=== PATIENT | female | born 1980 | race Caucasian/White ===

== ENCOUNTER 2023-01-30 12:31 | Outpatient (CLI) | payer OTHER | END 2023-01-30 13:14 | disposition home or self-care (01) | LOC: NST 12:31 | PROVIDERS: ATTEND Obstetrics & Gynecology | DX: Z34.83 Encounter for supervision of other normal pregnancy, third trimester (principal) ==

== ENCOUNTER 2023-02-12 13:55 | Outpatient (CLI) | payer OTHER | END 2023-02-12 14:57 | disposition home or self-care (01) | LOC: NST 13:55 | PROVIDERS: ATTEND Obstetrics & Gynecology Gynecology | DX: Z34.83 Encounter for supervision of other normal pregnancy, third trimester (principal) ==

== ENCOUNTER 2023-02-19 10:25 | Outpatient (CLI) | payer OTHER | END 2023-02-19 12:26 | disposition home or self-care (01) | LOC: NST 10:25 | PROVIDERS: ATTEND Obstetrics & Gynecology Gynecology | DX: Z34.83 Encounter for supervision of other normal pregnancy, third trimester (principal) ==

== ENCOUNTER 2023-03-05 01:01 | Inpatient (IN) | payer OTHER ==
[~2023-03-05] VITALS: Ht 152.4 cm; Wt 78.5 kg
[2023-03-05] MEDS ORDERED: LABETALOL HCL100 MG PO (10:32)
[2023-03-05] MEDS ORDERED: PRENATABS RX T1 EACH PO (10:33)
[2023-03-05] MEDS ORDERED: CHILDREN'S ASPI81 MG PO (10:33)
== END 2023-03-06 09:29 | disposition home or self-care (01) | DRG 833 ==
LOC: LDR 01:01
PROVIDERS: ADMIT Obstetrics & Gynecology Gynecology; ATTEND Obstetrics & Gynecology Gynecology
PROC: 4A1HXCZ Monitoring of Products of Conception, Cardiac Rate, External Approach (ICD-10-PCS; principal; 2023-03-05)
DX: O60.03 Preterm labor without delivery, third trimester (principal); Z3A.36 36 weeks gestation of pregnancy; Z20.822 Contact with and (suspected) exposure to COVID-19

== ENCOUNTER 2023-03-10 12:21 | Inpatient (IN) | payer OTHER ==
[~2023-03-10] VITALS: Ht 160 cm; Wt 2.7 kg
[~2023-03-10 12:21] MED LIST: CHILDREN'S ASPI81 MG PO; LABETALOL HCL100 MG PO; PRENATABS RX T1 EACH PO
== END 2023-03-14 13:44 | disposition home or self-care (01) | DRG 786 ==
LOC: LDR 12:21 → OB/GYN 03-11 13:46
PROVIDERS: ADMIT Obstetrics & Gynecology Gynecology; ATTEND Obstetrics & Gynecology Gynecology
PROC: 4A1HXCZ Monitoring of Products of Conception, Cardiac Rate, External Approach (ICD-10-PCS; 2023-03-10)
PROC: 10D00Z1 Extraction of Products of Conception, Low, Open Approach (ICD-10-PCS; principal; 2023-03-11 11:15)
DX: O10.92 Unspecified pre-existing hypertension complicating childbirth (principal); O60.14X0 Preterm labor third trimester with preterm delivery third trimester, not applicable or unspecified; Z3A.36 36 weeks gestation of pregnancy; Z37.0 Single live birth; Z20.822 Contact with and (suspected) exposure to COVID-19

== ENCOUNTER → 2023-05-03 06:00 | Outpatient (CLI) | payer OTHER ==
[~2023-05-03] VITALS: Ht 160 cm; Wt 67.6 kg
[2023-05-03 13:50] LABS: HEMATOCRIT 40.5 % (36.0-45.00); HEMOGLOBIN 13.3 g/dL (12.0-15.00); MEAN CELL VOLUME 87.6 fL (80.00-100.00); MEAN CORPUSCULAR HEMOGLOBIN 28.7 pg (27.00-32.0); MEAN CORPUSCULAR HGB CONC 32.8 g/dl (32.0-36.0); PLATELET COUNT 336 K/uL (150-450); RED BLOOD COUNT 4.63 M/uL (4.00-6.00); RED CELL DISTRIBUTION WIDTH 16.4 % (11.5-14.5)
[2023-05-03 14:16] LABS: PH,URINE 5.5 (5.0-8.0); URINE APPEARANCE Clear; URINE BILIRRUBIN Negative (NEGATIVE); URINE BLOOD Negative; URINE COLOR Yellow; URINE GLUCOSE Negative (NEGATIVE); URINE LEUKOCYTE Small; URINE NITRATE Negative; URINE PROTEIN Negative (NEGATIVE); URINE UROBILINOGEN 0.2 E.U./dl
[2023-05-03 14:24] LABS: INR 0.98; PARTIAL THROMBOPLASTIN TIME 26.3 SECONDS (22.0-34.0); PROTHROMBIN TIME 10.3 SECONDS (9.0-11.5)
[2023-05-03 14:31] LABS: ALBUMIN 3.9 gm/dL (3.4-5.0); BILIRUBIN TOTAL 1.39 mg/dL (0.3-1.2); CREATININE SERUM 0.74 mg/dL (0.55-1.02); GFR 86.49; GLOBULINA 3.3 G/DL (2.4-3.5); POTASSIUM 4.27 mEq/L (3.5-5.1); TOTAL PROTEIN 7.2 gm/dL (6.4-8.2)
[2023-05-03 15:08] LABS: URINE BACTERIA MANY; URINE MUCUS SCANT; URINE YEAST FEW /hpf
== END | disposition home or self-care (01) ==
LOC: LAB 06:00 → ADM 09:15 → CIR.AMB 05-09 09:15 → EDSTATUS 05-09 09:15
PROVIDERS: ATTEND Obstetrics & Gynecology Gynecology
DX: Z01.810 Encounter for preprocedural cardiovascular examination (principal); Z01.811 Encounter for preprocedural respiratory examination; Z01.812 Encounter for preprocedural laboratory examination